=== PATIENT | male | born 1970 | race American Indian/Alaskan Native ===

== ENCOUNTER 2021-09-14 00:17 | Emergency (ER) | payer OTHER ==
[2021-09-14 01:38] VITALS: BP 127/78
[2021-09-14 18:06] LABS: Hematocrit 32.8 % (35.5-45.6); Hemoglobin 11.1 gm/dl (11.8-15.2); Mean Corpuscular HGB Conc 34 % (32-34); Mean Corpuscular Volume 91 fl (84-94); Platelet Count 200 K/mm3 (140-440); Red Blood Count 3.61 M/mm3 (3.65-5.03)
[2021-09-14 18:31] LABS: Albumin 4.7 g/dL (3.9-5); Calcium 9.8 mg/dL (8.4-10.2)
== END 2021-09-14 07:18 | disposition left against medical advice (07) ==
LOC: ED 00:17
DX: R10.9 Unspecified abdominal pain (principal); Z53.21 Procedure and treatment not carried out due to patient leaving prior to being seen by health care provider
CPT/HCPCS: 36415; 80053; 83690; 85027